=== PATIENT | male | born 1985 | race Caucasian/White ===

== ENCOUNTER 2023-06-30 05:45 | Emergency (ER) | payer SELFPAY ==
[~2023-06-30] VITALS: Ht 185.4 cm; Wt 102.1 kg
[2023-06-30 05:58] VITALS: BP 120/76; PULSE 99; RESP 20; TEMP 97.8; O2SAT 99
[2023-06-30 06:02] VITALS: BP 120/76; PULSE 99; RESP 20; TEMP 97.8; O2SAT 99
== END 2023-06-30 06:02 ==
LOC: MED 05:45
DX: V49.88XA Car occupant (driver) (passenger) injured in other specified transport accidents, initial encounter; Y93.89 Activity, other specified; Y92.89 Other specified places as the place of occurrence of the external cause; Y99.8 Other external cause status
CPT/HCPCS: 99283